=== PATIENT | male | born 1975 | race Caucasian/White ===

== ENCOUNTER 2016-08-18 11:34 | Emergency (ER) | payer SELFPAY | END 2016-08-18 14:10 | disposition home or self-care (01) | LOC: ER 11:34 | DX: K27.0 Acute peptic ulcer, site unspecified, with hemorrhage (principal); G43.909 Migraine, unspecified, not intractable, without status migrainosus; J45.909 Unspecified asthma, uncomplicated; F17.210 Nicotine dependence, cigarettes, uncomplicated | CPT/HCPCS: 36415; 96365 ==